=== PATIENT | female | born 1980 | race Caucasian/White ===

== ENCOUNTER 2019-02-08 14:20 | Outpatient (CLI) | payer BC ==
[~2019-02-08 14:20] MED LIST: IBUP-1222 PO; PREN1TAB56
== END 2019-02-08 23:59 | disposition home or self-care (01) ==
LOC: CFH 14:20
PROVIDERS: ATTEND Nurse Practitioner Family
DX: N63.10 Unspecified lump in the right breast, unspecified quadrant (principal); N63.20 Unspecified lump in the left breast, unspecified quadrant
CPT/HCPCS: 76642; 77066; G0279